=== PATIENT | male | born 1995 | race Caucasian/White ===

== ENCOUNTER → 2021-02-13 | Outpatient (CLI) | payer OTHER ==
--- NOTE | 2021-02-13 11:50 | REP ---
INDICATION: RIGHT THUMB INJURY COMPARISON: None. TECHNIQUE: AP, lateral, bilateral oblique views . FINDINGS: The osseous structures and joint spaces are intact and normal. There is no evidence for acute fracture or dislocation. Surrounding soft tissues are unremarkable. No subcutaneous emphysema or radiodense foreign body. IMPRESSION: . No acute fracture or dislocation. <Electronically signed by Lui Yousif > 02/13/21 114
== END ==
LOC: M RAD 11:21
PROVIDERS: ATTEND Physician Assistant Medical
DX: S60.931A Unspecified superficial injury of right thumb, initial encounter (principal); Y92.9 Unspecified place or not applicable; Y93.9 Activity, unspecified; Y99.9 Unspecified external cause status